=== PATIENT | male | born 1950 | race American Indian/Alaskan Native ===

== ENCOUNTER 2017-06-22 08:08 | Outpatient (CLI) | payer MEDICARE ==
--- NOTE | 2017-06-24 07:43 | Vascular Lab Report ---
ABDOMINAL AORTA DUPLEX EXAM: REASON FOR EXAM: Concern for abdominal aortic aneurysm COMMENTS ON THE AORTA: The aorta is patent. No aneurysmal dilatation is noted. Mild atherosclerotic change is identified. The proximal aorta measures up to 2.3 cm. The mid aorta measures up to 2.5 cm. The distal aorta measures up to 2.39 cm. COMMENTS ON THE COMMON ILIAC ARTERIES: The common iliac arteries are patent. No aneurysmal dilatation is noted. Mild atherosclerotic change is identified. The right common iliac artery not measured The left common iliac artery not measured IMPRESSION: Mild aortic ectasia in the infrarenal aorta.
== END 2017-06-22 08:09 | disposition home or self-care (01) ==
LOC: US 08:08
PROVIDERS: ATTEND Family Medicine
DX: Z13.6 Encounter for screening for cardiovascular disorders (principal); I77.819 Aortic ectasia, unspecified site
CPT/HCPCS: 93979

== ENCOUNTER 2018-03-13 22:13 | Observation (INO) | payer MEDICARE ==
--- NOTE | 2018-03-13 22:45 | Emergency Department Report ---
ED Syncope HPI - General Chief Complaint: Syncope Stated Complaint: SYNCOPAL EPISODE Time Seen by Provider: 03/13/18 22:32 Source: patient, family, EMS Exam Limitations: no limitations - History of Present Illness Initial Comments: Patient is 67 years old male with history of hypertension and diabetes. Patient presented to the ER via EMS after family called and stated that patient had a syncopal episode while he was sitting for dinner. Family stated that he passed out for approximately 10 minutes. Patient stated that he does not remember anything. Patient is currently completely asymptomatic. He denied any chest pain, shortness of breath, weakness numbness or tingling sensation. Patient denied any symptoms prior to the syncope. Timing/Prior Episodes: no prior history, single episode today Precipitating Factors: Positive: none Context: sitting Loss of Consciousness: prolonged (minutes) Current Symptoms: back to normal - Related Data Allergies/Adverse Reactions: Allergies No Known Allergies Allergy (Unverified 03/16/16 08:16) Home Medications: Ambulatory Orders AtorvaSTATin [Lipitor] 20 mg PO QHS 03/13/18 metFORMIN [Glucophage] 500 mg PO BID 03/13/18 ED Review of Systems ROS: Stated complaint: SYNCOPAL EPISODE Other details as noted in HPI Comment: All other systems reviewed and negative Constitutional: denies: chills, fever Respiratory: denies: cough, orthopnea, shortness of breath, SOB with exertion, SOB at rest, wheezing Cardiovascular: denies: chest pain, palpitations, dyspnea on exertion Gastrointestinal: denies: abdominal pain, nausea, vomiting, diarrhea, constipation, hematemesis, melena, hematochezia Genitourinary: denies: urgency, frequency, hematuria, discharge Musculoskeletal: denies: back pain Neurological: denies: headache, weakness, numbness, paresthesias, confusion, abnormal gait, vertigo ED Past Medical Hx - Past Medical History Previous Medical History?: Yes Hx Hypertension: Yes Hx Diabetes: Yes - Social History Smoking Status: Current Some Day Smoker Substance Use Type: None - Medications Home Medications: Home Medications Medication Instructions Recorded Confirmed Last Taken Type AtorvaSTATin [Lipitor] 20 mg PO QHS 03/13/18 03/13/18 03/12/18 History metFORMIN [Glucophage] 500 mg PO BID 03/13/18 03/13/18 03/13/18 History ED Physical Exam - General Limitations: No Limitations General appearance: alert, in no apparent distress - Head Head exam: Present: atraumatic, normocephalic, normal inspection - Eye Eye exam: Present: normal appearance, PERRL - ENT ENT exam: Present: normal exam, normal orophraynx, mucous membranes moist - Neck Neck exam: Present: normal inspection, full ROM. Absent: tenderness, meningismus, lymphadenopathy, thyromegaly - Respiratory Respiratory exam: Present: normal lung sounds bilaterally. Absent: respiratory distress, wheezes, rales, rhonchi, stridor, chest wall tenderness, accessory muscle use, decreased breath sounds, prolonged expiratory - Cardiovascular Cardiovascular Exam: Present: regular rate, normal rhythm, normal heart sounds - GI/Abdominal GI/Abdominal exam: Present: soft, normal bowel sounds. Absent: distended, tenderness, guarding, rebound, rigid, organomegaly, mass, bruit, pulsatile mass , hernia - Extremities Exam Extremities exam: Present: normal inspection, full ROM, normal capillary refill. Absent: tenderness, pedal edema, calf tenderness - Back Exam Back exam: Present: normal inspection, full ROM. Absent: CVA tenderness (R), CVA tenderness (L), muscle spasm, paraspinal tenderness, vertebral tenderness, rash noted - Neurological Exam Neurological exam: Present: alert, oriented X3, CN II-XII intact, normal gait, reflexes normal - Skin Skin exam: Present: warm, intact, normal color ED Course Vital Signs 03/13/18 22:37 Temperature 97.8 F Pulse Rate 87 Respiratory 16 Rate Blood Pressure 113/62 [Left] O2 Sat by Pulse 100 Oximetry ED Medical Decision Making - Lab Data Result diagrams: 03/13/18 22:55 03/13/18 22:55 - EKG Data -: EKG Interpreted by Nh EKG shows normal: sinus rhythm Rate: normal - EKG Data Interpretation: no acute changes - Radiology Data Radiology results: report reviewed Referring Physician: JOI OVALLES Patient Name: CARRIE GREY Date of : 1950 Sex: Male Report Date: 2018-03-14 Report Status: Finalized Findings [facility] [address] [place] [address] XRay Report Signed Patient: CARRIE GREY MR#: [id number] : 1950 Acct:[id number] Age/Sex: 67 / M ADM Date: 03/13/18 Loc: ED Attending Dr: Ordering Physician: JOI OVALLES Date of Service: 03/13/18 Procedure(s): XR chest 1V ap Accession Number(s): [id number] cc: JOI OVALLES Fluoro Time In Minutes: FINAL REPORT PROCEDURE: XR CHEST 1V AP TECHNIQUE: Chest radiograph anteroposterior view. CPT 52088 HISTORY: syncope COMPARISON: No prior studies are available for comparison. FINDINGS: Heart: Normal. Mediastinum/Vessels: Normal. Lungs/Pleural space: Lungs are expanded. There are mild fibrotic changes. There are no active infiltrates, effusions or pneumothoraces per. Bony thorax: No acute osseous abnormality. Life support devices: None. IMPRESSION: No acute cardiopulmonary abnormality. Transcribed By: CO Dictated By: DONITA NOVOA MD Electronically Authenticated By: DONITA NOVOA MD Signed Date/Time: 03/14/18 004 Referring Physician: JOI OVALLES Patient Name: CARRIE GREY Date of : 1950 Sex: Male Report Date: 2018-03-14 Report Status: [place] [address] Nuclear Medicine Report Signed Patient: CARRIE GREY MR#: [id number] : 1950 Acct:[id number] Age/Sex: 67 / M ADM Date: 03/13/18 Loc: ED Attending Dr: Ordering Physician: JOI OVALLES Date of Service: 03/14/18 Procedure(s): NM lung scan perf/vent Accession Number(s): [id number] cc: JOI OVALLES FINAL REPORT PROCEDURE: NM LUNG SCAN PERF/VENT TECHNIQUE: 5.39 mCi Tc-99m MAA was injected IV for pulmonary perfusion imaging in multiple projections. 9.73 mCi Tc-99m DTPA aerosol was inhaled for pulmonary ventilation imaging in multiple projections. Injection site: RIGHT antecubital fossa. CPT 38249 REGULATORY GUIDELINES: The patient was released based upon guidelines established in [place] State Regulations for Protection Against Radiation, Chapter 1199-08-31-35, Release of Individuals Containing Radioactive Drugs or Implants. HISTORY: SYNCOPE, ELEVATED D-DIMER COMPARISON: No prior studies are available for comparison. FINDINGS: Perfusion: No defects . Ventilation: No defects . IMPRESSION: Normal Examination Transcribed By: CO Dictated By: DONITA NOVOA MD Electronically Authenticated By: DONITA NOVOA MD Signed Date/Time: 03/14/18523 DD/ 3 TD/TT: 03/14/18523 DD/ TD/TT: 03/14/1841 - Medical Decision Making I discussed the patient is Dr. Chinchilla , he agreed to admit the patient to medical service. Critical care attestation.: If time is entered above; I have spent that time in minutes in the direct care of this critically ill patient, excluding procedure time. ED Disposition Clinical Impression: TIA (transient ischemic attack), Syncope and collapse Disposition: OP ADMIT IP TO THIS HOSP Is pt being admited?: Yes Condition: Stable Instructions: Syncope (ED) Referrals: PRIMARY CARE, [Primary Care Provider] - 3-5 Days
--- NOTE | 2018-03-13 23:11 | Cat Scan Report ---
FINAL REPORT EXAM: CT HEAD/BRAIN WO CON HISTORY: Syncope TECHNIQUE: CT head without contrast PRIORS: None. FINDINGS: No acute intra-axial or extra-axial hemorrhage is identified. There is no evidence of midline shift or mass effect. The ventricles and sulci are within normal limits. Villatoro-white matter differentiation is intact. No acute parenchymal abnormalities seen. Bony calvarium is grossly intact. Visualized portions of the mastoids and paranasal sinuses are unremarkable. IMPRESSION: Negative CT head
[2018-03-13 23:30] LABS: Hematocrit 42.9 % (35.5-45.6); Hemoglobin 14.3 gm/dl (11.8-15.2); Mean Corpuscular HGB Conc 33 % (32-34); Mean Corpuscular Hemoglobin 31 pg (28-32); Mean Corpuscular Volume 94 fl (84-94); Platelet Count 197 K/mm3 (140-440); Red Blood Count 4.56 M/mm3 (3.65-5.03)
[2018-03-13 23:46] LABS: Alanine Aminotransferase 33 units/L (7-56); Albumin 3.6 g/dL (3.9-5); BUN/Creatinine Ratio 7; Blood Urea Nitrogen 4 mg/dL (9-20); Calcium 8.9 mg/dL (8.4-10.2); Hemolysis Index 1
[2018-03-13 23:59] LABS: INR 0.99 (0.87-1.13)
[2018-03-14] LABS: Bilirubin,Direct < 0.2 mg/dL (0-0.2)
--- NOTE | 2018-03-14 00:43 | XRay Report ---
FINAL REPORT PROCEDURE: XR CHEST 1V AP TECHNIQUE: Chest radiograph anteroposterior view. CPT 73048 HISTORY: syncope COMPARISON: No prior studies are available for comparison. FINDINGS: Heart: Normal. Mediastinum/Vessels: Normal. Lungs/Pleural space: Lungs are expanded. There are mild fibrotic changes. There are no active infiltrates, effusions or pneumothoraces per. Bony thorax: No acute osseous abnormality. Life support devices: None. IMPRESSION: No acute cardiopulmonary abnormality.
[2018-03-14 04:29] LABS: Band Neutrophils # (Manual) 0.2 K/mm3; Basophils % (Manual) 0 % (0.0-1.8); Eosinophils % (Manual) 0 % (0.0-4.3); Total Cells Counted 100
[2018-03-14 04:30] LABS: Platelet Estimate Consistent w Auto
--- NOTE | 2018-03-14 05:24 | Nuclear Medicine Report ---
FINAL REPORT PROCEDURE: NM LUNG SCAN PERF/VENT TECHNIQUE: 5.39 mCi Tc-99m MAA was injected IV for pulmonary perfusion imaging in multiple projections. 9.73 mCi Tc-99m DTPA aerosol was inhaled for pulmonary ventilation imaging in multiple projections. Injection site: RIGHT antecubital fossa. CPT 42958 REGULATORY GUIDELINES: The patient was released based upon guidelines established in [place] State Regulations for Protection Against Radiation, Chapter 1199-08-31-35, Release of Individuals Containing Radioactive Drugs or Implants. HISTORY: SYNCOPE, ELEVATED D-DIMER COMPARISON: No prior studies are available for comparison. FINDINGS: Perfusion: No defects . Ventilation: No defects . IMPRESSION: Normal Examination
[2018-03-14] MEDS ORDERED: ZOFRAN IV PRN (06:34)
[2018-03-14] MEDS ORDERED: TYLENOL PO PRN (06:34)
[2018-03-14] MEDS ORDERED: D50W (25GM) Syringe IV PRN (06:36)
[2018-03-14] MEDS ORDERED: NACL 0.9% 1000 ML 1,000 ML IV SCH (07:00)
--- NOTE | 2018-03-14 07:17 | History and Physical Report ---
CHIEF COMPLAINT: Syncopal attacks. HISTORY OF PRESENT ILLNESS: The patient is a 67-year-old male who said he was sitting down for dinner and then passed out and then he did not remember what happened. There was no prior history of chest pain, shortness of breath, fever, chills, nausea, or vomiting. The patient stated there was no dizziness and he passed out for about 10 minutes and this incident was witnessed by other family members. The patient denies any history of nausea or vomiting and was brought to the Emergency Room. PAST MEDICAL HISTORY: Pertinent for diabetes mellitus and hypertension. PAST SURGICAL HISTORY: Unremarkable. FAMILY HISTORY: Family history is noncontributory. SOCIAL HISTORY: The patient smokes cigarettes, drinks alcohol, does not use illicit drugs. MEDICATIONS: The patient is on Lipitor 20 mg by mouth at bedtime, Glucophage 500 mg by mouth twice daily. ALLERGIES: There are no known drug allergies. REVIEW OF SYSTEMS: CONSTITUTIONAL: There is no fever, no chills, no diaphoresis. HEENT: There is no headache or sore throat. CARDIOVASCULAR SYSTEM: There is no chest pain or orthopnea. RESPIRATORY SYSTEM: There is no shortness of breath or cough. GASTROINTESTINAL SYSTEM: There is no nausea, no vomiting, no abdominal pain, diarrhea or constipation. NEUROLOGICAL SYSTEM: Syncopal attack noted. No dizziness. There is altered mental status when patient passed out. MUSCULOSKELETAL SYSTEM: There is no joint pain or swelling. DERMATOLOGICAL SYSTEM: There is no skin rash or itching. GENITOURINARY: There is no dysuria, hematuria, or flank pain. Rest of system review is normal. PHYSICAL EXAMINATION: GENERAL: At the time of exam, the patient was found to be alert, oriented x 3, and not in acute distress. VITAL SIGNS: At the initial time of presentation shows temperature of 97.8 degrees Fahrenheit, pulse of 87, respirations 16, blood pressure 113/62, O2 sat of 100% on room air. HEENT: Eyes show pupils to be equal, round, reactive to light and accommodating. Extraocular muscles are intact. NECK: Supple with no JVD or carotid bruit. CARDIOVASCULAR: Show normal first and second heart sounds with no gallops or murmurs. RESPIRATORY: Show good air entry on both sides of the lungs with no abnormal breath sounds. GASTROINTESTINAL: Show abdomen to be full, soft, nontender with no organomegaly or rigidity. NEUROLOGIC: Shows no focal deficit. MUSCULOSKELETAL: Show no joint swelling or tenderness. DERMATOLOGICAL: Show no skin rash. GENITOURINARY: Showing no costovertebral angle tenderness. PERTINENT LABORATORY AND IMAGING STUDIES: The patient had CT of the head without contrast done that shows no acute intracranial lesion. Also, the patient had chest x-ray done which shows no cardiopulmonary lesion and the patient has V/Q scan done that shows no pulmonary embolus. The patient's lab test shows CBC with normal white count, normal hemoglobin and normal hematocrit with CBC differential showing slight increase in segmented neutrophils. The patient's D-dimer was high with a value of 1056 that led to the ordering of V/Q scan, which was negative for pulmonary embolus. The patient's chemistry was unremarkable. DIAGNOSIS: Syncope. PLAN OF CARE: 1. The patient will be admitted to telemetry. 2. The patient will have bilateral carotid Doppler done this morning and also have 2D echo done. 3. The patient will have cardiac enzymes involving troponin, total CK, and CK-MB checked q. 6 hours x 2 more levels. 4. The patient will be on IV normal saline at 125 mL an hour. 5. The patient will be on p.r.n. medications like Tylenol 650 mg by mouth every 4 hours for fever and headache and IV Zofran 4 mg every 8 hours for nausea and vomiting. 6. The patient will be on Accu-Chek a.c. and at bedtime, followed by low-dose sliding scale using regular insulin coverage. . The patient will be on his home medications as shown in his medication reconciliation section. JOB# [id number] OCN/NTS JASVIR
[2018-03-14] MEDS: HumuLIN R SUB-Q SCH ×4 (08:29→21:46)
--- NOTE | 2018-03-14 09:23 | Progress Note ---
Assessment and Plan Assessment and plan: Patient is 67 years old man with history of hypertension, NIDDM, tobacco dependency and alcohol abuse (he drinks wine everyday, Moscato 6 oz x 3). Patient presented to the ER via EMS after family called and stated that patient had a syncopal episode while he was sitting for dinner. Family stated that he passed out for approximately 10 minutes. Patient stated that he does not remember anything. Patient is currently completely asymptomatic. He denied any chest pain, shortness of breath, weakness numbness or tingling sensation. Patient denied any symptoms prior to the syncope. * CT head reported as negative * D-Dimer 1056.29 and v/q scan reported as normal exam * pCXR reported as no acute process -Syncope -Type 2 DM: ssi, ada -Hypertension: low salt diet -Tobacco dependency: Certified Physician Assistant on tobacco Plan: check Orthostatics, EKG, ECHO, and Telemetry, Carotid dopplers pending History Interval history: Patient was seen and examined. Follow-up on current diagnosis of LOC, resolved. Overnight uneventful. Patient denies any chest pain, shortness breath, nausea/ vomiting or severe headaches. Imaging, nursing note, chart, labs and old chart reviewed. Discussed with patient. Hospitalist Physical - Physical exam Narrative exam: GEN: WDWN, NAD, Awake, Alert, Orientated x 3 HEENT: NCAT, EOMI, PERRL, OP Clear NECK: supple, no adenopathy, no thyromegaly, no JVD CVS/HEART: RRR, normal S1S2, pulses present bilaterally CHEST/LUNGS: CTA B, Symmetrical chest expansion, good air entry bilaterally GI/Abdomen: soft, NTND, good bowel sounds, no guarding or rebound /Bladder: no suprapubic tenderness, no CVA or paraspinal tenderness EXT/Skin: no c/c/e, no obvious rash MSK: FROM x 4 Neuro: CN 2-12 grossly intact, no new focal deficits Psych: calm - Constitutional Vitals: Temp Pulse Resp BP Pulse Ox 97.8 F 77 20 126/78 94 03/14/18 07:20 03/14/18 07:20 03/14/18 07:20 03/14/18 07:20 03/14/18 07:20 Results - Labs CBC & Chem 7: 03/13/18 22:55 03/13/18 22:55 Labs: Laboratory Last Values WBC 7.8 K/mm3 (4.5-11.0) 03/13/18 22:55 RBC 4.56 M/mm3 (3.65-5.03) 03/13/18 22:55 Hgb 14.3 gm/dl (11.8-15.2) 03/13/18 22:55 Hct 42.9 % (35.5-45.6) 03/13/18 22:55 MCV 94 fl (84-94) 03/13/18 22:55 MCH 31 pg (28-32) 03/13/18 22:55 MCHC 33 % (32-34) 03/13/18 22:55 RDW 15.0 % (13.2-15.2) 03/13/18 22:55 Plt Count 197 K/mm3 (140-440) 03/13/18 22:55 Add Manual Diff Complete 03/13/18 22:55 Total Counted 100 03/13/18 22:55 Seg Neuts % (Manual) 74.0 % (40.0-70.0) H 03/13/18 22:55 Band Neutrophils % 2.0 % 03/13/18 22:55 Lymphocytes % (Manual) 21.0 % (13.4-35.0) 03/13/18 22:55 Reactive Lymphs % (Man) 0 % 03/13/18 22:55 Monocytes % (Manual) 3.0 % (0.0-7.3) 03/13/18 22:55 Eosinophils % (Manual) 0 % (0.0-4.3) 03/13/18 22:55 Basophils % (Manual) 0 % (0.0-1.8) 03/13/18 22:55 Metamyelocytes % 0 % 03/13/18 22:55 Myelocytes % 0 % 03/13/18 22:55 Promyelocytes % 0 % 03/13/18 22:55 Blast Cells % 0 % 03/13/18 22:55 Nucleated RBC % Not Reportable 03/13/18 22:55 Seg Neutrophils # Man 5.8 K/mm3 (1.8-7.7) 03/13/18 22:55 Band Neutrophils # 0.2 K/mm3 03/13/18 22:55 Lymphocytes # (Manual) 1.6 K/mm3 (1.2-5.4) 03/13/18 22:55 Abs React Lymphs (Man) 0.0 K/mm3 03/13/18 22:55 Monocytes # (Manual) 0.2 K/mm3 (0.0-0.8) 03/13/18 22:55 Eosinophils # (Manual) 0.0 K/mm3 (0.0-0.4) 03/13/18 22:55 Basophils # (Manual) 0.0 K/mm3 (0.0-0.1) 03/13/18 22:55 Metamyelocytes # 0.0 K/mm3 03/13/18 22:55 Myelocytes # 0.0 K/mm3 03/13/18 22:55 Promyelocytes # 0.0 K/mm3 03/13/18 22:55 Blast Cells # 0.0 K/mm3 03/13/18 22:55 WBC Morphology Not Reportable 03/13/18 22:55 Hypersegmented Neuts Not Reportable 03/13/18 22:55 Hyposegmented Neuts Not Reportable 03/13/18 22:55 Hypogranular Neuts Not Reportable 03/13/18 22:55 Smudge Cells Not Reportable 03/13/18 22:55 Toxic Granulation Not Reportable 03/13/18 22:55 Toxic Vacuolation Not Reportable 03/13/18 22:55 Dohle Bodies Not Reportable 03/13/18 22:55 Pelger-Huet Anomaly Not Reportable 03/13/18 22:55 Mandy Rods Not Reportable 03/13/18 22:55 Platelet Estimate Consistent w auto 03/13/18 22:55 Clumped Platelets Not Reportable 03/13/18 22:55 Plt Clumps, EDTA Not Reportable 03/13/18 22:55 Large Platelets Not Reportable 03/13/18 22:55 Giant Platelets Not Reportable 03/13/18 22:55 Platelet Satelliting Not Reportable 03/13/18 22:55 Plt Morphology Comment Not Reportable 03/13/18 22:55 RBC Morphology Not Reportable 03/13/18 22:55 Dimorphic RBCs Not Reportable 03/13/18 22:55 Polychromasia Not Reportable 03/13/18 22:55 Hypochromasia Not Reportable 03/13/18 22:55 Poikilocytosis Not Reportable 03/13/18 22:55 Anisocytosis Not Reportable 03/13/18 22:55 Microcytosis Not Reportable 03/13/18 22:55 Macrocytosis Not Reportable 03/13/18 22:55 Spherocytes Not Reportable 03/13/18 22:55 Pappenheimer Bodies Not Reportable 03/13/18 22:55 Sickle Cells Not Reportable 03/13/18 22:55 Target Cells Not Reportable 03/13/18 22:55 Tear Drop Cells Not Reportable 03/13/18 22:55 Ovalocytes Not Reportable 03/13/18 22:55 Helmet Cells Not Reportable 03/13/18 22:55 Foley-[place] Bodies Not Reportable 03/13/18 22:55 [place] Rings Not Reportable 03/13/18 22:55 Claire Cells Not Reportable 03/13/18 22:55 Bite Cells Not Reportable 03/13/18 22:55 Crenated Cell Not Reportable 03/13/18 22:55 Elliptocytes Not Reportable 03/13/18 22:55 Acanthocytes (Spur) Not Reportable 03/13/18 22:55 Rouleaux Not Reportable 03/13/18 22:55 Hemoglobin C Crystals Not Reportable 03/13/18 22:55 Schistocytes Not Reportable 03/13/18 22:55 Malaria parasites Not Reportable 03/13/18 22:55 Romaine Bodies Not Reportable 03/13/18 22:55 Hem Pathologist Commnt No 03/13/18 22:55 PT 13.6 Sec. (12.2-14.9) 03/13/18 22:55 INR 0.99 (0.87-1.13) 03/13/18 22:55 D-Dimer 1056.29 ng/mlDDU (0-234) H 03/13/18 22:55 Sodium 141 mmol/L (137-145) 03/13/18 22:55 Potassium 3.7 mmol/L (3.6-5.0) 03/13/18 22:55 Chloride 103.4 mmol/L (98-107) 03/13/18 22:55 Carbon Dioxide 22 mmol/L (22-30) 03/13/18 22:55 Anion Gap 19 mmol/L 03/13/18 22:55 BUN 4 mg/dL (9-20) L 03/13/18 22:55 Creatinine 0.6 mg/dL (0.8-1.5) L 03/13/18 22:55 Estimated GFR > 60 ml/min 03/13/18 22:55 BUN/Creatinine Ratio 7 % 03/13/18 22:55 Glucose 142 mg/dL (75-100) H 03/13/18 22:55 POC Glucose 117 (70-105) H 03/14/18 08:34 Calcium 8.9 mg/dL (8.4-10.2) 03/13/18 22:55 Total Bilirubin 0.40 mg/dL (0.1-1.2) 03/13/18 22:55 Direct Bilirubin < 0.2 mg/dL (0-0.2) 03/13/18 22:55 Indirect Bilirubin 0.2 mg/dL 03/13/18 22:55 AST 24 units/L (5-40) 03/13/18 22:55 ALT 33 units/L (7-56) 03/13/18 22:55 Alkaline Phosphatase 75 units/L (35-129) 03/13/18 22:55 Troponin T 0.015 ng/mL (0.00-0.029) 03/13/18 22:55 Total Protein 6.4 g/dL (6.3-8.2) 03/13/18 22:55 Albumin 3.6 g/dL (3.9-5) L 03/13/18 22:55 Albumin/Globulin Ratio 1.3 % 03/13/18 22:55
[2018-03-14] MEDS ORDERED: LIBRIUM PO PRN (11:44)
[2018-03-14] MEDS ORDERED: ATIVAN IV PRN ×2 (11:44)
[2018-03-14] MEDS ORDERED: HALDOL IV PRN (11:44)
[2018-03-14] MEDS: FOLVITE PO SCH (12:56)
[2018-03-14] MEDS: VITAMIN B-1 PO SCH (12:56)
[2018-03-14 14:06] LABS: Creatine Kinase MB 3.1 ng/mL (0.0-4.0)
--- NOTE | 2018-03-14 16:17 | Cat Scan Report ---
FINAL REPORT EXAM: CT ANGIO HEAD HISTORY: carotid stenosis TECHNIQUE: CTA of the Head with IV contrast. Coronal and sagittal reconstructed imaging provided. PRIORS: None currently available. FINDINGS: Series 2:117 demonstrates moderate to severe disease in both cavernous carotids with suspected 65-75 percent narrowing. Anterior and posterior circulations are patent with contrast. No aneurysm. No dissection. No vascular malformation. 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
--- NOTE | 2018-03-14 16:31 | Cat Scan Report ---
FINAL REPORT EXAM: CT ANGIO NECK HISTORY: carotid stenosis TECHNIQUE: CTA of the Neck with IV contrast. Coronal and sagittal reconstructed imaging provided. Carotid stenosis calculated by the NASCET method. PRIORS: None currently available. FINDINGS: NECK: RIGHT CAROTID: Origin: Unremarkable. Common: Unremarkable. Bifurcation: 25-35 percent narrowing. Internal: Mild disease at the proximal segment. Midportion is patent. 25-30 percent narrowing at the distal segment. External: Unremarkable. No aneurysm. No dissection. No vascular malformation. LEFT CAROTID: Origin: Unremarkable. Common: Unremarkable. Bifurcation: 65-75 percent stenosis. Internal: Mild disease at the proximal segment. Midportion is patent. 25-35 percent narrowing at the distal segment. External: Unremarkable. No aneurysm. No dissection. No vascular malformation. VERTEBRALS: Equally dominant. No aneurysm. No dissection. No vascular malformation. Degenerative changes are present within the spine. Prominent anterior osteophytes at C4-C6. Enhancing lesion in the left parotid gland measures 1.7 cm. Smaller lesion in the left parotid gland measures 0.5 cm. Emphysema noted within both lungs. IMPRESSION: Suspect hemodynamically significant stenosis at the left carotid bifurcation. Degenerative changes in the spine. Enhancing lesions in both parotid glands. Ultrasound with fine-needle aspiration or biopsy may be helpful if clinically indicated. Emphysema.
[2018-03-14 20:49] LABS: Creatine Kinase MB 2.4 ng/mL (0.0-4.0)
[2018-03-14] MEDS ORDERED: HumuLIN R SUB-Q SCH (22:00)
[2018-03-14] MEDS: ASPIRIN PO SCH (22:58)
[2018-03-15 05:35] LABS: Hematocrit 45.8 % (35.5-45.6); Hemoglobin 14.9 gm/dl (11.8-15.2); Mean Corpuscular HGB Conc 32 % (32-34); Mean Corpuscular Hemoglobin 31 pg (28-32); Mean Corpuscular Volume 95 fl (84-94); Platelet Count 175 K/mm3 (140-440); Red Blood Count 4.82 M/mm3 (3.65-5.03); Red Cell Distribution Width 15.1 % (13.2-15.2)
[2018-03-15 06:05] LABS: BUN/Creatinine Ratio 18; Blood Urea Nitrogen 7 mg/dL (9-20); Calcium 9.1 mg/dL (8.4-10.2); Chol/HDL Ratio 2.96 %; HDL Cholesterol 30 mg/dL (40-59); Hemolysis Index 26; LDL Cholesterol,Direct 49 mg/dL (50-130)
[2018-03-15] MEDS: HumuLIN R SUB-Q SCH ×2 (07:30→12:59)
--- NOTE | 2018-03-15 08:26 | Discharge Summary ---
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 Patient presented to the ER via EMS after family called and stated that patient had a syncopal episode while he was sitting for dinner. Family stated that he passed out for approximately 10 minutes. Patient stated that he does not remember anything. Patient is currently completely asymptomatic. He denied any chest pain, shortness of breath, weakness numbness or tingling sensation. Patient denied any symptoms prior to the syncope. Patient underwent CT head that was reported as negative and VQ scan also noted is normal. CTA of the head revealed suspected stenosis in both cavernous carotids. CT neck revealed possible significant stenosis at the left carotid bifurcation. However, Carotid Dopplers revealed less than 50% stenosis bilaterally. Echocardiogram is pending and will be followed up as an outpatient. Etiology of syncope is likely vasovagal. Incidental finding on CT of neck also revealed enhancing lesions in both parotid glands. Ultrasound with fine-needle aspiration or biopsy may be helpful if clinically indicated. This finding can be followed up as an outpatient. Findings discussed with the patient. Dedicated discharge time 32 minutes. Disposition: DC-01 TO HOME OR SELFCARE Time spent for discharge: 32 - Discharge Diagnoses (1) Parotid gland enlargement Status: Acute (2) Syncope and collapse Status: Acute Core Measure Documentation - Palliative Care Palliative Care/ Comfort Measures: Not Applicable - Core Measures Any of the following diagnoses?: none Exam - Constitutional Vitals: Temp Pulse Resp BP Pulse Ox 97.4 F L 87 20 155/87 98 03/14/18 16:26 03/14/18 23:00 03/14/18 22:00 03/14/18 16:26 03/14/18 22:00 General appearance: Present: no acute distress, well-nourished - EENT Eyes: Present: PERRL ENT: hearing intact, clear oral mucosa - Neck Neck: Present: supple, normal ROM - Respiratory Respiratory effort: normal Respiratory: bilateral: CTA - Cardiovascular Heart Sounds: Present: S1 & S2. Absent: rub, click - Extremities Extremities: pulses symmetrical, No edema Peripheral Pulses: within normal limits - Abdominal General gastrointestinal: Present: soft, non-tender, non-distended, normal bowel sounds Male genitourinary: Present: normal - Integumentary Integumentary: Present: clear, warm, dry - Musculoskeletal Musculoskeletal: gait normal, strength equal bilaterally - Psychiatric Psychiatric: appropriate mood/affect, intact judgment & insight - Neurologic Neurologic: CNII-XII intact, moves all extremities Plan Activity: no restrictions Weight Bearing Status: Full Weight Bearing Diet: regular Additional Instructions: Patient with enhancing lesion and parotid gland enlargement. Ultrasound with fine-needle aspiration or biopsy may be helpful if clinically indicated. Follow-up with PCP. Follow up with: PRIMARY CARE, [Primary Care Provider] - 3-5 Days
[2018-03-15] MEDS ORDERED: CITRATE OF MAGNESIA PO NR (09:00)
[2018-03-15] MEDS ORDERED: PROTONIX PO SCH (10:00)
[2018-03-15] MEDS ORDERED: LOVENOX SUB-Q SCH (10:00)
[2018-03-15] MEDS: VITAMIN B-1 PO SCH (10:16)
[2018-03-15] MEDS: FOLVITE PO SCH (10:16)
[2018-03-15] MEDS: ASPIRIN PO SCH (10:16)
--- NOTE | 2018-03-15 12:15 | Consultation ---
History of Present Illness - Reason for Consult Consult date: 03/15/18 Carotid Stenosis - History of Present Illness This patient is a 67-year-old -English male that was admitted via the emergency room on 03/13/2018 due to syncope. The patient was admitted, and a workup initiated. This include an evaluation for possible stroke. A chest x-ray and VQ scan were essentially negative. CT scan of the head revealed no acute findings. A carotid duplex suggested less than 50% stenosis of the internal carotid arteries bilaterally (with antegrade vertebral flow bilaterally). There was a high velocity noted in the left external carotid artery (peak systolic velocity of 446 over an end-diastolic velocity of 86 cm/sec). CT angiogram of the head and neck were ordered. This was reported as possible hemodynamically significant stenosis of the left carotid bifurcation (with an estimated stenosis of 65-75%). The CTA of the head was reported as possible hemodynamically significant stenosis and both cavernous carotids. A Vascular surgery consult has been requested to further evaluate. The patient denies being on any antiplatelet medication as an outpatient. He denies any knowledge of numbness or weakness, slurred speech, loss of vision at the time of this event or in the recent past. He apparently stood with subsequent syncope and loss of consciousness lasting approximately 10 minutes. Past History Past Medical History: diabetes, hypertension Past Surgical History: No surgical history (none listed) Social history: smoking. denies: alcohol abuse (drinks approximately 3 drinks per day) Family history: no significant family history (none listed) Medications and Allergies Allergies Allergy/AdvReac Type Severity Reaction Status Date / Time No Known Allergies Allergy Verified 03/14/18 06:38 Home Medications Medication Instructions Recorded Confirmed Last Taken Type AtorvaSTATin [Lipitor] 20 mg PO QHS 03/13/18 03/13/18 03/12/18 History metFORMIN [Glucophage] 500 mg PO BID 03/13/18 03/13/18 03/13/18 History Pantoprazole [Protonix TAB] 40 mg PO QDAY tablet 03/15/18 Unknown Rx Active Meds: Active Medications Acetaminophen (Tylenol) 650 mg PO Q4H PRN PRN Reason: Fever >101 Aspirin (Aspirin) 325 mg PO QDAY [facility] Last Admin: 03/15/18 10:16 Dose: 325 mg Atorvastatin Calcium (Lipitor) 40 mg PO QHS [facility] Last Admin: 03/14/18 23:01 Dose: 40 mg Chlordiazepoxide HCl (Librium) 100 mg PO Q1H PRN PRN Reason: CIWA-Ar 16-25 Dextrose (D50w (25gm) Syringe) 50 ml IV PRN PRN PRN Reason: Hypoglycemia Enoxaparin Sodium (Lovenox) 40 mg SUB-Q QDAY@2200 [facility] Last Admin: 03/15/18 10:18 Dose: 40 mg Folic Acid (Folvite) 1 mg PO QDAY [facility] Last Admin: 03/15/18 10:16 Dose: 1 mg Haloperidol Lactate (Haldol) 5 mg IV Q1H PRN PRN Reason: Unrespon. to mult. doses BZD's Sodium Chloride (Nacl 0.9% 1000 Ml) 1,000 mls @ 125 mls/hr IV DIRECT STACEY Insulin Human Regular (Humulin R) 0 units SUB-Q ACHS [facility]; Protocol Last Admin: 03/15/18 07:30 Dose: Not Given Insulin Human Regular (Humulin R) 0 units SUB-Q QHS [facility]; Protocol Last Admin: 03/14/18 21:47 Dose: Not Given Lorazepam (Ativan) 2 mg IV Q1H PRN PRN Reason: CIWA-Ar 8-15 Lorazepam (Ativan) 4 mg IV Q15MIN PRN PRN Reason: CIWA-Ar >25 Magnesium Citrate (Citrate Of Magnesia) 300 ml PO ONCE NR Stop: 03/15/18 13:00 Last Admin: 03/15/18 10:16 Dose: 300 ml Ondansetron HCl (Zofran) 4 mg IV Q8H PRN PRN Reason: Nausea And Vomiting Pantoprazole Sodium (Protonix) 40 mg PO QDAY [facility] Last Admin: 03/15/18 10:16 Dose: 40 mg Thiamine HCl (Vitamin B-1) 100 mg PO QDAY [facility] Last Admin: 03/15/18 10:16 Dose: 100 mg Review of Systems All systems: negative (complains of mild cramping to his right leg (primarily) with ambulation, this improves with rest) Exam - Constitutional Vitals: Temp Pulse Resp BP Pulse Ox 97.7 F 57 L 18 133/64 96 03/15/18 10:01 03/15/18 10:01 03/15/18 10:01 03/15/18 10:01 03/15/18 10:01 General appearance: Present: no acute distress - EENT Eyes: Present: EOM intact ENT: hearing intact - Neck Neck: Present: supple - Respiratory Respiratory effort: normal - Extremities Extremities: no ischemia, normal temperature (all extremities are warm and appear to be adequately perfused is difficult to palpate a dorsalis pedis on the right but felt palpable on the left.) - Psychiatric Psychiatric: appropriate mood/affect, intact judgment & insight, cooperative - Neurologic Neurologic: no focal deficits, moves all extremities Results - Labs CBC & Chem 7: 03/15/18 04:51 03/15/18 04:51 Labs: Abnormal lab results 03/14/18 03/14/18 03/14/18 Range/Units 13:11 13:18 16:50 Hct (35.5-45.6) % MCV (84-94) fl Carbon Dioxide (22-30) mmol/L BUN (9-20) mg/dL Creatinine (0.8-1.5) mg/dL Glucose (75-100) mg/dL POC Glucose 115 H 126 H (70-105) CK-MB (CK-2) Rel Index 5.3 H (0-4) LDL Cholesterol Direct (50-130) mg/dL HDL Cholesterol (40-59) mg/dL 03/14/18 03/15/18 03/15/18 Range/Units 20:15 04:51 04:51 Hct 45.8 H (35.5-45.6) % MCV 95 H (84-94) fl Carbon Dioxide 21 L (22-30) mmol/L BUN 7 L (9-20) mg/dL Creatinine 0.4 L (0.8-1.5) mg/dL Glucose 112 H (75-100) mg/dL POC Glucose (70-105) CK-MB (CK-2) Rel Index 4.1 H (0-4) LDL Cholesterol Direct 49 L (50-130) mg/dL HDL Cholesterol 30 L (40-59) mg/dL 03/15/18 Range/Units 10:19 Hct (35.5-45.6) % MCV (84-94) fl Carbon Dioxide (22-30) mmol/L BUN (9-20) mg/dL Creatinine (0.8-1.5) mg/dL Glucose (75-100) mg/dL POC Glucose 111 H (70-105) CK-MB (CK-2) Rel Index (0-4) LDL Cholesterol Direct (50-130) mg/dL HDL Cholesterol (40-59) mg/dL Assessment and Plan This patient was admitted with what sounds like a syncopal episode. Workup was initiated. Carotid duplex and CT angiogram suggests carotid stenosis , but appears to be less than surgical threshold. Patient was not on antiplatelet medication as an outpatient. He is on atorvastatin. Agree with adding antiplatelet medication. Strongly encouraged patient to stop smoking. He'll need to have routine follow-up and monitoring his carotid stenosis. He describes symptoms which sound like claudication. This can be worked up through our office as an outpatient. The patient was given a card and recommended that he call for an appointment. Pt needs continued work up of syncope. Pt noted to have parotid lesion of CT scan that likely requires w/u as well. - Patient Problems (1) Carotid stenosis Current Visit: Yes Status: Acute (2) Syncope and collapse Current Visit: Yes Status: Acute (3) Lesion of parotid gland Current Visit: Yes Status: Acute (4) Hypertension Current Visit: Yes Status: Acute (5) Diabetes mellitus Current Visit: Yes Status: Acute (6) Tobacco abuse Current Visit: Yes Status: Acute
[2018-03-15 14:07] VITALS: BP 102/63
--- NOTE | 2018-03-21 14:31 | Query- Syncope ---
Yulia Ross Date:__03/21/2018 Assistant Account Executive/CDS:___Felicity/Nevin Phone#:___[phone] Exercise your independent professional judgment when responding to query. Questions asked do not imply a particular answer is desired or expected. We greatly appreciate your clarification on this issue. Clinical Documentation States: 67 Year old male was admitted on 03/13/2018 for a syncopal episode while he was sitting for dinner. Family stated that he passed out for approximately 10 minutes. Patient stated that he does not remember anything. The Discharge summary stated "- Discharge Diagnoses (1) Parotid gland enlargement Status: Acute (2) Syncope and collapse Status: Acute." The Vascular Consult note stated "- Patient Problems (1) Carotid stenosis Current Visit: Yes Status: Acute." Please specify the cause as: [ ] Autonomic Imbalance [ ] Dialysis disequilibrium syndrome [ ] Hypotension [ ] Shock [ ] Psychogenic [ ] Unable to Determine [ x] Other:___syncope Present on Admission: [ x] Yes (Y) [ ] Clinically undeterminable (W) [ ] No (N) Please also document response in your Progress Notes and/or Discharge Summary and indicate if the condition was present on admission. JASVIR
--- NOTE | 2018-03-21 17:53 | Vascular Lab Report ---
CAROTID DUPLEX STUDY: RIGHT PSVEDV CCA [id number] CCA DIST:[id number] ICA PROX:7212 ICA MID:6920 ICA DIST:[id number] ECA: 949 VERT: 40 14 LEFT PSVEDV CCA PROX:6414 CCA DIST:[id number] ICA PROX:[id number] ICA MID:9724 ICA DIST:8016 ECA: [id number] VERT: 47 15 REASON FOR EXAM: Syncope. COMMENTS ON THE RIGHT: Doppler frequency analysis is consistent with 16 to 49 percent diameter reduction of the internal carotid artery. Calcified irregular surfaced plaque is seen. The common carotid artery is patent. The external carotid artery is patent. The vertebral artery has antegrade flow. COMMENTS ON THE LEFT: Doppler frequency analysis is consistent with 16 to 49 percent diameter reduction of the internal carotid artery. Calcified and irregular surfaced plaque is seen. The common carotid artery is patent. The external carotid artery is patent but markedly stenotic. The vertebral artery has antegrade flow. IMPRESSION: Less than 50% diameter reduction in the internal carotid arteries bilaterally. Consider further evaluation including CT angiography.
== END 2018-03-15 16:15 | disposition home health service (06) ==
LOC: ED 22:13 → 4A 03-14 06:28 → INTOOBSV 03-14 06:28 → 2B-ACE 03-14 10:27
PROVIDERS: ADMIT Internal Medicine; ATTEND Hospitalist
DX: R55 Syncope and collapse (principal); G45.9 Transient cerebral ischemic attack, unspecified; I10 Essential (primary) hypertension; E11.9 Type 2 diabetes mellitus without complications; F17.210 Nicotine dependence, cigarettes, uncomplicated; F10.10 Alcohol abuse, uncomplicated
CPT/HCPCS: 36415; 70450; 70496; 70498; 71045; 78582; 80048; 80061; 80074; 82550; 82553; 82962; 84443; 84484; 85007; 85025; 85027; 85379; 85610; 93005; 93010; 93306; 93880; 96372; 99285; 99406; A9270; A9540; A9558; G0378; J1650; Q9967; J1815